=== PATIENT | female | born 1990 | race Caucasian/White ===

== ENCOUNTER 2019-10-04 23:17 | Emergency (ER) | payer OTHER ==
[~2019-10-04] VITALS: Ht 162.6 cm; Wt 86.2 kg
[~2019-10-04 23:17] MED LIST: PREN1TAB86 PO
[2019-10-04 23:25] VITALS: BP 121/57
--- NOTE | 2019-10-05 00:38 | NUR ---
PATIENT STATES NO CHANGE IN CONDITION. AAO. IN LOBBY.
--- NOTE | 2019-10-05 01:20 | NUR ---
PATIENT STATES SHE IS LEAVING BECAUSE SHE CAN NOT WAIT ANY LONGER AND WILL RETURN IN THE MORNING.
== END 2019-10-05 01:20 | disposition left against medical advice (07) ==
LOC: MED 23:17
DX: L60.0 Ingrowing nail (principal); Z53.21 Procedure and treatment not carried out due to patient leaving prior to being seen by health care provider